=== PATIENT | female | born 1960 | race Caucasian/White ===

== ENCOUNTER 2022-06-24 10:42 | Emergency (ER) | payer BC, SELFPAY ==
[2022-06-24 10:43] VITALS: BP 120/47; PULSE 125; RESP 18; TEMP 39.3; O2SAT 96; BMI 34.4
--- NOTE | 2022-06-24 11:11 | EX.ED.DYSGE1 ---
HPI History of Present Illness Chief Complaint: Fever Detail of Chief Complaint: Fever that started 3 days ago Informant: patient Narrative Narrative: Patient presents the emergency department complaint of a fever that started 3 days ago. Patient states that she started feeling very fatigued and weak yesterday and slept for most of the day. Patient complains of headache and body aches. Fever up to 102.8. She took Tylenol this morning around 7 AM. She is had some nausea but no vomiting. She denies diarrhea. She denies abdominal pain. She denies any cough or sore throat. She denies sick contacts. Patient has had the COVID-vaccine and booster. Patient currently undergoing radiation for breast cancer. Patient last chemotherapy was in February 2022. Prior similar symptoms: No PFSH PFSH Medical History (Updated 06/24/22 @ 14:[address] Tracey Whitaker, ) Cancer Chronic pain Grief Hypertension Home Medications acetaminophen 500 mg capsule 500 mg PO DAILY 06/24/22 [History Last Taken Unknown] aspirin 81 mg capsule 81 mg PO DAILY 06/24/22 [History Last Taken Unknown] flaxseed oil 1,000 mg capsule 1,000 mg PO DAILY 06/24/22 [History Last Taken Unknown] levofloxacin 750 mg tablet 750 mg PO DAILY #5 tabs 06/24/22 [Rx Last Taken Unknown] lisinopril 10 mg-hydrochlorothiazide 12.5 mg tablet 1 tab PO DAILY 06/24/22 [History Last Taken Unknown] pyridoxine (vitamin B6) 100 mg tablet (Vitamin B-6) 100 mg PO DAILY 06/24/22 [History Last Taken Unknown] Allergy/AdvReac Type Severity Reaction Status Date / Time fosaprepitant Allergy Anaphylaxis Verified 06/24/22 10:50 Surgical History (Updated 06/24/22 @ 11:41 by Bessy Robbins) History of total mastectomy of left breast Social History Smoking Status: Former smoker ROS ROS ED Review of Systems ROS Unobtainable: other Constitutional Constitutional ED: Reports fever(s) and lethargy; Denies chills, sweats or weight loss Eyes Eyes: Denies blurry vision, change in vision or diplopia ENT ENT ED: Denies rhinorrhea or sore throat Cardiovascular Cardiovascular: Denies chest pain, orthopnea or racing heartbeat Respiratory/Chest Respiratory/Chest: Denies cough, dyspnea, dyspnea on exertion, orthopnea or sputum Gastrointestinal Gastrointestinal: Reports nausea; Denies abdominal pain, diarrhea or vomiting Genitourinary Genitourinary ED: Denies dysuria, hematuria or urinary frequency Musculoskeletal Musculoskeletal: Reports myalgias; Denies arthralgias, back pain or neck pain Integumentary Denies abscess, Abrasions or rash Neurologic Neurologic: Reports headache(s); Denies weakness Psychiatric Psychiatric: Denies anxiety, depression or suicidal thoughts Endocrine Endocrinology: Denies polydipsia, polyphagia or polyuria Hematologic/Lymphatic Hematologic/Lymphatic: Denies easy bleeding, easy bruising or lymphadenopathy Allergic/Immunologic Allergic/Immunologic ED: Denies mouth swelling, tongue swelling or urticaria EXAM Physical Exam Const Vital Signs: 06/24/22 10:43 06/24/22 12:00 06/24/22 11:46 Temperature 102.8 F H 102.5 F H Temperature Source Oral Oral Pulse Rate 125 H 125 H Respiratory Rate 18 18 Respiratory Effort Normal Non-Labored Respiratory Pattern Normal Blood Pressure 120/47 L 120/47 L Blood Pressure Mean 71 71 Pulse Ox 96 96 Oxygen Delivery Method Room Air Room Air 06/24/22 13:00 06/24/22 13:00 06/24/22 14:07 Temperature 102.5 F H 102.5 F H 100.2 F H Temperature Source Oral Oral Oral Pulse Rate 111 H 111 H 102 H Respiratory Rate 15 15 12 Respiratory Effort Respiratory Pattern Blood Pressure 126/82 H 126/82 H 125/65 H Blood Pressure Mean 96 96 85 Pulse Ox 96 96 94 Oxygen Delivery Method Room Air Room Air Room Air Positive well nourished and well developed General Appearance ED: well developed and NAD HEENT Reports TM's clear and moist mucous membranes normocephalic and atraumatic; Negative for trauma or tenderness Tympanic Membrane ED: Yes TM's clear Eyes PERRL and EOMs intact bilaterally General Eye ED: Negative for pale conjunctiva or scleral icterus Neck no lymphadenopathy, supple and no JVD General: Negative for tenderness Chest Wall inspection of chest normal and palpation of chest normal Chest: Negative for tenderness Resp normal respiratory effort and clear to auscultation bilaterally Effort and Inspection: Negative for respiratory distress or pain with movement Auscultation: Negative for rhonchi, wheezes or diminished lung sounds Cardio regular rhythm, S1 normal heart sound, S2 normal heart sound and no murmurs Rate: tachycardic Peripheral Pulses: pulses 2+ throughout GI normal to inspection, nondistended, normoactive bowel sounds, soft to palpation, non-tender, non-distended and no masses Back/Spine no CVA tenderness and no thoracic nor lumbar tenderness Extremity normal to inspection General Extremety ED: Negative for edema General Extremity: Negative for edema Neuro oriented x3, CN's II-XII intact bilaterally, no sensory deficits noted and gait normal Sensorium / Orientation: awake, alert, oriented to person, oriented to place and oriented to time Motor Exam: strength 5/5 throughout and strength abnormal Psych mental status grossly normal Skin no rashes or lesions noted and no wounds MDM MDM MDM Narrative Medical decision making narrative: IV line established on arrival. Blood cultures were ordered. Influenza screen was negative. Chest x-ray showed bibasilar infiltrates although these could be viral. Clinically she has no real cough or sputum production. I did send off a PCR COVID test that she has had 2 negative tests at home yesterday and today. Being the patient somewhat immune compromised we will cover her with Levaquin. Her PCR test result will not be back for several hours. Do not feel that she is septic and I feel she can be safely discharged to home. I will attempt to discuss case with her oncologist prior to discharge. Patient advised to return if increasing shortness of breath or condition should worsen anyway. Lab Data Attestation: I reviewed the patient's lab results. Labs: Laboratory Results - last 24 hr 06/24/22 06/24/22 06/24/22 11:32 11:32 11:32 WBC 9.7 RBC 4.51 Hgb 13.4 Hct 40.6 MCV 90.0 MCH 29.7 MCHC 33.0 RDW Std Deviation 46.4 H RDW Coeff of Mat 14.1 Plt Count 257 MPV 9.9 Immature Gran % (Auto) 0.400 Neut % (Auto) 85.9 H Lymph % (Auto) 4.6 L [place] % (Auto) 8.7 Eos % (Auto) 0.2 Baso % (Auto) 0.2 Absolute Neuts (auto) 8.3 H Absolute Lymphs (auto) 0.44 L Nucleated RBC % 0 Differential Comment Platelet Estimate ADEQUATE RBC Morphology NORM C+C Sodium 134 L Potassium 3.9 Chloride 99 Carbon Dioxide 27.0 Anion Gap 8 BUN 10 Creatinine 0.66 Estim Creat Clear Calc 91.44 Est GFR (MDRD) Af Amer 118 Est GFR (MDRD) Non-Af 98 BUN/Creatinine Ratio 15.2 Glucose 117 H Lactic Acid 0.8 Calcium 9.6 Total Bilirubin 0.50 AST 16 ALT 25 Alkaline Phosphatase 53 Total Protein 7.6 Albumin 3.5 Globulin 4.1 Albumin/Globulin Ratio 0.9 Urine Color Urine Clarity Urine pH Ur Specific [place] Urine Protein Urine Glucose (UA) Urine Ketones Urine Occult Blood Urine Nitrite Urine Bilirubin Urine Urobilinogen Ur Leukocyte Esterase Urine RBC Urine WBC Ur Squamous Epith Cells Urine Bacteria Urine Mucus 06/24/22 13:15 WBC RBC Hgb Hct MCV MCH MCHC RDW Std Deviation RDW Coeff of Mat Plt Count MPV Immature Gran % (Auto) Neut % (Auto) Lymph % (Auto) [place] % (Auto) Eos % (Auto) Baso % (Auto) Absolute Neuts (auto) Absolute Lymphs (auto) Nucleated RBC % Differential Comment Platelet Estimate RBC Morphology Sodium Potassium Chloride Carbon Dioxide Anion Gap BUN Creatinine Estim Creat Clear Calc Est GFR (MDRD) Af Amer Est GFR (MDRD) Non-Af BUN/Creatinine Ratio Glucose Lactic Acid Calcium Total Bilirubin AST ALT Alkaline Phosphatase Total Protein Albumin Globulin Albumin/Globulin Ratio Urine Color Yellow Urine Clarity Sl. Cloudy Urine pH 7.0 Ur Specific [place] 1.010 Urine Protein 15 H Urine Glucose (UA) Normal Urine Ketones Negative Urine Occult Blood 50 H Urine Nitrite Negative Urine Bilirubin Negative Urine Urobilinogen Normal Ur Leukocyte Esterase 25 H Urine RBC 5-10 SEEN Urine WBC 0-5 SEEN Ur Squamous Epith Cells 0-5 SEEN Urine Bacteria 0 SEEN Urine Mucus 0 SEEN Radiography Diagnostic Testing: Clinical Impression(s) from Imaging Studies Chest X-Ray 06/24/22 11:43 IMPRESSION: Findings indicative of bibasilar infiltrates more prominent on the left side. Electronically Signed: Cruz Linda MD at 12:18 EDT , 1 view chest ray obtained interpreted by myself as mild increased markings both lower lobes and radiology in agreement. Radiology thought these may represent bibasilar infiltrates. Discharge Plan Triage Chief Complaint: Fever ED Provider: Tracey Whitaker Dx/Rx/DC Orders Clinical Impression: Fever Instructions: ED FUO Adult Prescriptions: New levofloxacin 750 mg tablet 750 mg PO DAILY Qty: 5 0RF No Action lisinopril-hydrochlorothiazide 10-12.5 mg Tablet 1 tab PO DAILY flaxseed oil 1,000 mg Capsule 1,000 mg PO DAILY Rx Instructions: administer with a meal pyridoxine (vitamin B6) [Vitamin B-6] 100 mg Tablet 100 mg PO DAILY aspirin 81 mg Capsule 81 mg PO DAILY acetaminophen [Tylenol Extra Strength] 500 mg Capsule 500 mg PO DAILY Primary Care Provider: Luba Emerson NP Referrals: Cong Hanna DO [Med Staff - Active Staff] - 3-5 Days Luba Emerson NP, RESEARCH COORDINATOR-C [Primary Care Provider] - Disposition Disposition: Home, Self Care
--- NOTE | 2022-06-24 11:43 | RAD_ITS ---
STUDY: X-RAY CHEST REASON FOR EXAM: Female, 62 years old. Fever TECHNIQUE: Single AP portable view of the chest. COMPARISON: None. FINDINGS: Increased markings at both lung bases more prominent on the left side suggestive of bibasilar infiltrates. There is no demonstrated pleural abnormality. Normal size heart. Normal mediastinum and tyler. Normal visualized pulmonary arteries. Normal visualized aortic arch and descending thoracic aorta. There are degenerative changes of the visualized thoracic spine. Normal visualized ribs, clavicles, and shoulders. There is no demonstrated abnormality of the visualized soft tissue structures of the upper abdomen. RAD/Chest 1 View (Portable) IMPRESSION: Findings indicative of bibasilar infiltrates more prominent on the left side. Electronically Signed: Cruz Linda MD at 12:18 EDT ,
[2022-06-24 11:46] VITALS: BP 120/47; PULSE 125; RESP 18; TEMP 39.2; O2SAT 96
[2022-06-24 11:49] LABS: Absolute Lymphocyte Count 0.44 X10^3/uL (0.83-4.51); Absolute Neutrophil Count 8.3 X10^3/uL (2.0-7.7); Basophil# 0.02 X10^3/uL; Basophil% 0.2 % (0-1); Eosinophil# 0.02 X10^3/uL; Eosinophils% 0.2 % (0-5); Hematocrit 40.6 % (37-47); Hemoglobin 13.4 g/dL (12.0-15.0); Lymphocyte # 0.44 X10^3/ul (0.83-4.51); Lymphocyte % 4.6 % (19-41); Mean Corpuscular Hgb 29.7 pg (27.0-32.0); Mean Platelet Vol. 9.9 fl (6.2-12.0); Monocyte# 0.84 X10^3/uL; Monocyte% 8.7 % (0-10); NRBC Flagged by Analyzer 0 % (0-5); Neutrophil # 8.31 X10^3/uL (2.7-7.7); Neutrophil % 85.9 % (47-70); POSITIVE DIFFERENTIAL YES; Platelet Count 257 K/mm3 (150-450); RBC Distribution Width CV 14.1 % (11.6-14.6); RBC Distribution Width SD 46.4 fl (35.1-43.9); Red Blood Count 4.51 M/mm3 (4.2-5.4); White Blood Count 9.7 K/mm3 (4.4-11.0)
[2022-06-24 11:58] LABS: Differential Indicated SCAN CRITERIA MET
[2022-06-24 12:05] LABS: ALB/GLOB Ratio 0.9 RATIO (0.9-2.4); AST(SGOT) 16 U/L (15-37); Alanine Aminotransfer ALT/SGPT 25 U/L (13-56); Albumin, Serum 3.5 g/dL (3.2-5.0); Alkaline Phosphatase 53 U/L (45-117); Anion Gap 8 (5-15); BUN 10 mg/dL (7-18); BUN/Creat Ratio 15.2 RATIO (10-20); Calcium,Total 9.6 mg/dL (8.5-10.1); Chloride 99 mmol/L (98-107); Creatinine, Serum 0.66 mg/dL (0.55-1.02); EST Glomerular Filtration Rate 98 mL/min (>60); Est Glom Filt Rate - Afr Amer 118 mL/min (>60); Estimated Creatinine Clearance 91.44 ml/min; Globulin 4.1 g/dL (2.2-4.2); Glucose 117 mg/dL (74-106); Potassium 3.9 mmol/L (3.5-5.1); Protein, Total 7.6 g/dL (6.4-8.2); Sodium Level 134 mmol/L (136-145)
[2022-06-24 12:11] LABS: Lactic Acid 0.8 mmol/L (0.4-1.9)
[2022-06-24] MEDS: 0.9% Normal Saline 1,000 ML 150 ML IV (12:26)
[2022-06-24 13:00] VITALS: BP 126/82; PULSE 111; RESP 15; TEMP 39.2; O2SAT 96
[2022-06-24 13:05] LABS: Platelet Estimate ADEQUATE (ADEQ); Red Cell Morphology NORM C+C NORMAL (NORM C&C)
[2022-06-24 13:18] LABS: Bacteria 0 SEEN /hpf (None Seen); Mucous, Urine 0 SEEN /hpf (<or=2+)
[2022-06-24] MEDS: Ibuprofen 600 MG Tablet PO (13:18)
[2022-06-24 13:21] LABS: Color, Urine Yellow (Yellow); Glucose, Dipstick Normal (Normal); Ketone-Dipstick Negative (Negative); Leukocyte Esterase-Dipstick 25 /ul (Negative); Nitrite-Dipstick Negative (Negative); Occult Blood-Urine 50 /ul (Negative); Protein-Dipstick 15 mg/dl (Negative); Urine Bilirubin Dipstick Negative (Negative); Urine Clarity Sl. Cloudy (Clear); Urine Urobilinogen Normal (Normal)
[2022-06-24 13:42] LABS: Red Blood Cells-Urine 5-10 SEEN /hpf (0-5); Squamous Epithelial Cells - UA 0-5 SEEN /hpf (5-10); White Blood Cells 0-5 SEEN /hpf (0-5)
[2022-06-24 14:07] VITALS: BP 125/65; PULSE 102; RESP 12; TEMP 37.9; O2SAT 94
[2022-06-24] MEDS: levoFLOXacin 750 MG Tablet PO (14:37)
== END 2022-06-24 15:00 | disposition home or self-care (01) ==
PROVIDERS: Emergency Provider Emergency Medicine; PCP Nurse Practitioner Family; Visit Provider Emergency Medicine
DX: R50.9 Fever, unspecified (principal); C50.919 Malignant neoplasm of unspecified site of unspecified female breast; R11.0 Nausea; I10 Essential (primary) hypertension; Z87.891 Personal history of nicotine dependence; Z92.21 Personal history of antineoplastic chemotherapy; Z79.82 Long term (current) use of aspirin; Z79.899 Other long term (current) drug therapy; Z20.822 Contact with and (suspected) exposure to COVID-19
CPT/HCPCS: 71045; 80053; 81001; 83605; 85025; 87040; 87635; 87804; 96360; 96361; 99285; J7030; A4216; U0003; U0005

== ENCOUNTER → 2022-07-21 | Outpatient (CLI) | payer BC, SELFPAY ==
--- NOTE | 2022-07-21 11:48 | RAD_ITS ---
PROCEDURE: Fluoroscopic guided Hip Injection DATE: 07/21/2022. INDICATION: Female, 62 years old. Chronic right hip pain. PHYSICIAN: Cruz Linda M.D. MEDICATIONS: 80 mg of KENALOG and 3 cc of 0.5% MARCAINE. 2% Lidocaine administered subcutaneously for local anesthesia. ACCESS SITE: Right hip. NEEDLE: 22-gauge spinal needle. FLUOROSCOPY TIME (if supplied): (0:36) minutes/seconds. 1 FINDINGS: The risks, benefits, and alternatives to the procedure were explained to the patient. The specific risks of bleeding, infection, and neurovascular injury were detailed and accepted. Witnessed informed consent was obtained. A 22-gauge spinal needle was positioned under radiographic fluoroscopic localization. Approximately 2 cc of ISOVUE-300 instilled for localization purposes. Medication was then injected. The patient tolerated the procedure well without any immediate complications. RAD/Inj/Asp Ricky Jt Should/Hip/Knee IMPRESSION: 1. Successful fluoroscopic guided hip injection. Electronically Signed: Cruz Linda MD at 12:45 EST ,
[2022-07-21] MEDS: Lidocaine 2% (5ml sdv) 5 ML VIAL.MPF INFILT (12:11)
[2022-07-21] MEDS: Triamcinolone Acetonide 40 MG/ML Vial 80 MG OPERA.SITE (12:14)
[2022-07-21] MEDS: Bupivacaine 0.5% PF 10 ML VIAL OPERA.SITE (12:14)
== END | disposition home or self-care (01) ==
LOC: RAD 11:30
PROVIDERS: PCP Nurse Practitioner Family; Referring Provider Orthopaedic Surgery; Visit Provider Orthopaedic Surgery
DX: G89.29 Other chronic pain (principal); M25.551 Pain in right hip; M16.11 Unilateral primary osteoarthritis, right hip
CPT/HCPCS: 20610; 77002; Q9965

== ENCOUNTER → 2024-02-16 | Outpatient (CLI) | payer BC, SELFPAY ==
[2024-02-16] MEDS: Lidocaine 2% (5ml sdv) 5 ML VIAL.MPF INFILT (10:38)
[2024-02-16] MEDS: Bupivacaine Mpf 0.5% 30 ML VIAL SC (10:41)
[2024-02-16] MEDS: Triamcinolone Acetonide 40 MG/ML Vial 80 MG IM (10:41)
--- NOTE | 2024-02-16 10:56 | PCM.OP.PRO ---
Procedure Report Date of Procedure: 02/16/24 Assessment & Plan Assessment/Plan (1) Unilateral primary osteoarthritis, right hip: PLAN: PROCEDURE: Fluoroscopic Guided right hip injection ORDERING PROVIDER: Dr. Rangel INDICATION: Female, 63 years old. Right hip primary osteoarthritis. FLUOROSCOPY TIME (if supplied): 0 minutes/18 seconds. 6.97 mGy PROVIDER: ELAINE Allen PROCEDURE: CONSENT: The risks, benefits, and alternatives to the procedure were explained to the patient. The specific risks of bleeding, infection, and neurovascular injury were detailed and accepted. Witnessed informed consent was obtained. TECHNIQUE: The right hip access site was prepped and draped in sterile fashion. 2% Lidocaine was administered subcutaneously for local anesthesia. A 22-gauge spinal needle was positioned under radiographic fluoroscopic localization. Approximately 2 cc of Isovue 300 instilled for localization purposes. Medication was then injected. MEDICATIONS: 80 mg of triamcinolone and 3 ml of 0.5% bupivacaine. The spinal needle was removed, and a dressing was applied. The patient tolerated the procedure well without any immediate complications. IMPRESSION: Successful fluoroscopic guided right hip injection. Procedures Radiology Radiology Xray Procedures: [id number] Inj Asp major Joint - Hip, Knee Multi Select Codes Radiology Rad Xray Procedures: [id number] Fluoroscopic guidance for needle placement
== END | disposition home or self-care (01) ==
LOC: RAD 09:55
PROVIDERS: PCP Nurse Practitioner Family; Referring Provider Orthopaedic Surgery; Visit Provider Orthopaedic Surgery
DX: M16.11 Unilateral primary osteoarthritis, right hip (principal)
CPT/HCPCS: 20610; 77002

== ENCOUNTER → 2024-07-07 | Outpatient (CLI) | payer BC, SELFPAY ==
--- NOTE | 2024-07-07 11:30 | RAD_ITS ---
PROCEDURE: Fluoroscopic guided Hip Injection DATE: July 07, 2024 INDICATION: Female, 64 years old. Chronic right hip pain. PHYSICIAN: Cruz Linda M.D. MEDICATIONS: 80 mg of Kenalog and 3 cc of 0.5% Marcaine. 2% lidocaine administered subcutaneously for local anesthesia. ACCESS SITE: Right hip. NEEDLE: 22-gauge spinal needle. FLUOROSCOPY TIME (if supplied): (0:34) minutes/seconds. 7.1 mGy. . 2 images were obtained. FINDINGS: The risks, benefits, and alternatives to the procedure were explained to the patient. The specific risks of bleeding, infection, and neurovascular injury were detailed and accepted. Witnessed informed consent was obtained. A 22-gauge spinal needle was positioned under radiographic fluoroscopic localization. Approximately 2 cc of Isovue-300 instilled for localization purposes. Medication was then injected. The patient tolerated the procedure well without any immediate complications. The patient was placed supine with head elevated and returned to the floor in stable condition. RAD/Inj/Asp Ricky Jt Should/Hip/Knee IMPRESSION: 1. Successful fluoroscopic guided hip injection. Electronically Signed: Cruz Linda MD at 13:13 EDT ,
[2024-07-07] MEDS: Lidocaine 2% (5ml sdv) 5 ML VIAL.MPF INFILT (12:00)
== END | disposition home or self-care (01) ==
LOC: RAD 11:29
PROVIDERS: PCP Nurse Practitioner Family; Referring Provider Orthopaedic Surgery; Visit Provider Orthopaedic Surgery
DX: M16.11 Unilateral primary osteoarthritis, right hip (principal)
CPT/HCPCS: 20610; 77002

== ENCOUNTER → 2025-07-28 | Outpatient (CLI) | payer BC, SELFPAY ==
--- NOTE | 2025-07-28 12:51 | RAD_ITS ---
PROCEDURE: INJ/ASP RICKY JT SHOULD/HIP/KNEE 07/28/2025 REASON FOR EXAM: OA TECHNIQUE: Procedure Code: RADINJ/ASP MJ Modality: DX Procedure: INJ/ASP RICKY JT SHOULD/HIP/KNEE. The procedure as well as the benefits and possible complications were explained to the patient. Informed consent was obtained. The patient was in the supine position. The overlying skin was prepped and draped in the usual sterile fashion. Following local anesthetic application and under direct fluoroscopic guidance, a 22 gauge spinal needle was placed into the right hip joint. 2 cc of Isovue 300 was injected for confirmation. Following this, 80 mg of Kenalog and 3 cc of 1% lidocaine was injected. The patient tolerated the procedure well. Fluoroscopy: 24 seconds. Radiation dose: 3.8 mGy. COMPARISON: Prior study dated July 07, 2024. FINDINGS: Successful right hip arthrogram with injection of steroid and anesthetic. RAD/Inj/Asp Ricky Jt Should/Hip/Knee IMPRESSION: Successful right hip injection. Patient tolerated the procedure well. No immediate complication noted. Reading Location: [place] [id number]
== END | disposition home or self-care (01) ==
LOC: RAD 12:46
PROVIDERS: PCP Nurse Practitioner Family; Referring Provider Orthopaedic Surgery; Visit Provider Orthopaedic Surgery
DX: M16.11 Unilateral primary osteoarthritis, right hip (principal)
CPT/HCPCS: 20610; 77002; Q9967